=== PATIENT | female | born 1935 | race Caucasian/White ===

== ENCOUNTER 2017-06-15 10:42 | Emergency (ER) | payer MEDICARE, MEDICAID ==
[2017-06-15 11:18] VITALS: TEMP 97.8
[2017-06-15 13:44] VITALS: BP 159/83; PULSE 58; RESP 18; O2SAT 95
--- NOTE | 2017-06-15 14:36 | C.PDOC ---
History Of Present Illness 82 year old female is sent to the ED from her adult daycare asymptomatic but when they check her blood pressure it came back high. Patient reports she did not taker her medications today. Upon arrival patient states she wants to go home, she reports feeling fine. Time Seen by Provider: 06/15/17 11:38 Chief Complaint (Nursing): High Blood Pressure History Per: Patient History/Exam Limitations: no limitations Onset/Duration Of Symptoms: Hrs Current Symptoms Are (Timing): Still Present Quality Of Symptoms: Asymptomatic Exacerbating Factor(s): Pos: Recently Missed Doses Of Medication Recent travel outside of the [place]: No Additional History Per: Patient Past Medical History Reviewed: Historical Data, Nursing Documentation, Vital Signs Vital Signs: Last Vital Signs Temp 97.8 F 06/15/17 11:05 Pulse 58 L 06/15/17 13:43 Resp 18 06/15/17 13:43 BP 159/83 H 06/15/17 13:43 Pulse Ox 95 06/15/17 15:40 - Medical History PMH: Anxiety, Arthritis, Asthma, Depression, HTN, Migraine Surgical History: No Surg Hx Family History: States: Unknown Family Hx - Social History Hx Alcohol Use: No Hx Substance Use: No - Immunization History Hx Tetanus Toxoid Vaccination: No Hx Influenza Vaccination: Yes Hx Pneumococcal Vaccination: No Review Of Systems Constitutional: Negative for: Fever, Chills Cardiovascular: Negative for: Chest Pain, Palpitations Respiratory: Negative for: Cough, Shortness of Breath Gastrointestinal: Negative for: Nausea, Vomiting, Abdominal Pain Genitourinary: Negative for: Dysuria, Hematuria Skin: Negative for: Rash Neurological: Negative for: Weakness, Numbness Physical Exam - Physical Exam Appears: Non-toxic, No Acute Distress Skin: Normal Color, Warm, Dry Head: Atraumatic, Normacephalic Eye(s): bilateral: Normal Inspection Nose: No Discharge, No Deformity Oral Mucosa: Moist Neck: Normal ROM, Supple Chest: Symmetrical Cardiovascular: Rhythm Regular, No Murmur Respiratory: Normal Breath Sounds, No Rales, No Rhonchi, No Wheezing Gastrointestinal/Abdominal: Soft, No Tenderness, No Guarding, No Rebound Extremity: Normal ROM, No Pedal Edema, No Calf Tenderness, No Deformity, No Swelling Neurological/Psych: Oriented x3, Normal Speech, Normal Cognition ED Course And Treatment O2 Sat by Pulse Oximetry: 95 (On RA) Pulse Ox Interpretation: Normal Progress Note: Plan: -EKG. -Catapres 0.2 mg PO. Upon arrival patient's BP was slightly elevated. Repeat BP was better and patient is stable enough to be d/c home Disposition - Disposition Referrals: Leif Da Silva MD [Staff Provider] - Disposition: HOME/ ROUTINE Disposition Time: 14:34 Condition: STABLE Additional Instructions: Follow up with your PMD within 1-2 days. return to ED if feel worse. Return to Ed if feel worse. Instructions: Hypertension (ED) Forms: [employer] (Telugu) - Clinical Impression Clinical Impression: HTN (hypertension) - PA / RESIN FILTERER / Resident Statement MD/DO has reviewed & agrees with the documentation as recorded. - Scribe Statement The provider has reviewed the documentation as recorded by the Scribe Kenny Aelx All medical record entries made by the Scribe were at my direction and personally dictated by me. I have reviewed the chart and agree that the record accurately reflects my personal performance of the history, physical exam, medical decision making, and the department course for this patient. I have also personally directed, reviewed, and agree with the discharge instructions and disposition.
--- NOTE | 2017-06-17 12:14 | CARD ---
APPROVED REPORT EKG Measurement Heart [id number] <Conclusion> Normal sinus rhythm Moderate voltage criteria for LVH, may be normal variant Nonspecific ST and T wave abnormality Prolonged QT Abnormal ECG
== END 2017-06-15 14:56 | disposition home or self-care (01) ==
LOC: C.ER 10:42
DX: I10 Essential (primary) hypertension (principal)